=== PATIENT | male | born 1990 | race Caucasian/White ===

== ENCOUNTER 2024-04-08 15:29 | Observation (INO) ==
[2024-04-08 16:05] LABS: Basophils # (auto) 0.05 K/uL (0.00-0.20); Basophils % (auto) 0.8 %; Eosinophils # (auto) 0.29 K/uL (0.00-0.50); Eosinophils % (auto) 4.8 %; Hematocrit (blood only) 40.6 % (42.0-52.0); Hemoglobin 14.2 g/dl (14.0-18.0); Immature Granulocytes # (auto) 0.02 K/uL (0.01-0.20); Immature Granulocytes % (auto) 0.3 %; Lymphocytes # (auto) 1.86 K/uL (1.20-3.40); Lymphocytes % (auto) 30.7 %; Mean Corpuscular Hemoglobin 31.2 pg (25.0-34.0); Mean Corpuscular Volume 89.2 fL (80.0-100.0); Mean Platelet Volume 10.8 fL (9.4-12.4); Monocytes # (auto) 0.32 K/uL (0.11-0.59); Monocytes % (auto) 5.3 %; Neutrophils # (auto) 3.51 K/uL (1.40-6.50); Neutrophils % (auto) 58.1 %; Platelet Count 352 K/uL (130-400); RDW Coefficient of Variation 12.4 % (11.5-14.5); RDW Standard Deviation 40.8 fL (36.4-46.3); Red Blood Count 4.55 M/uL (4.70-6.10); White Blood Count 6.05 K/ul (4.8-10.8)
--- NOTE | 2024-04-08 16:10 | Emergency Department Note ---
History of Present Illness General Chief complaint: Abdominal Pain Stated complaint: RT FLANK PAIN, POSSIBLE APPENDICITIS Time Seen by Provider: 04/08/24 15:48 History of Present Illness This is a 34-year-old male presenting to the emergency department for evaluation of right lower quadrant abdominal pain. Patient has had symptoms for the past 3 days. He went to his primary care physician, and did have an outpatient CT scan performed a few hours ago through the [facility] system, which did show acute appendicitis. Patient does not have nausea or vomiting. He has been able to use the bathroom as normal. No history of abdominal surgery. Last meal was around 2 PM, roughly 2 hours prior to arrival. Home Medications Medication Instructions Recorded Confirmed Type cetirizine 10 mg tablet 10 mg PO DAILY PRN Allergy Symptoms 12/07/18 04/08/24 History omeprazole 20 mg capsule,delayed 20 mg PO DAILY #90 caps 10/11/22 04/08/24 Rx release oxycodone 5 mg tablet 5 - 10 mg (1 - 2 x 5 mg) PO 04/09/24 Rx .[id number] PRN pain #15 tabs Allergies Allergy/AdvReac Type Severity Reaction Status Date / Time No Known Allergies Allergy Unverified 10/11/22 10:01 Past Med/Surg History Problem List (Updated 04/09/24 @ 16:58 by Aiden Rangel PA-C) Encounter for pre-operative examination Appendicitis (Acute) Esophageal foreign body (Acute) Medical History (Updated 04/09/24 @ 16:58 by Aiden Rangel PA-C) Esophageal stricture Surgical History No pertinent past surgical history Family History Other Food impaction of esophagus Social History Smoking Status: Never smoker Second Hand Exposure: No; Do You Dip or Chew Tobacco: No; Hx Alcohol Use: No Hx Substance Use: No Preferred Language: Vietnamese Communication Ability: Effective 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 Beliefs That Will Affect Care: None Current Living Situation: Spouse and Family Current Living Situation Comment: 2 children Other Information That Helps Us Care for You: No Feels Safe at Home: Yes Safety Concerns: Feels Safe At This Time Assistive Devices: None Review of Systems A total of 10 systems reviewed and were otherwise negative Physical Exam Vital Signs Vital Signs - 24 hr 04/08/24 15:32 Temperature 36.5 C Temperature Source Temporal Artery Scan Pulse Rate 85 Respiratory Rate 18 Respiratory Effort / Characteristics Non-Labored Spontaneous Respiratory Depth Normal Blood Pressure 123/77 Blood Pressure Mean 92 Blood Pressure Position Sitting Pulse Oximetry 97 Oxygen Delivery Method Room Air Sepsis Recent Fever Within 48 Hours No Sepsis New/Unexplained Change in Mental Status No Sepsis Action Taken by Nursing No Action Required VITALS: Vitals are noted on the nurse's note and reviewed by myself. Vital signs stable. GENERAL: Well-developed, well-nourished, white male, who is in no acute distress and resting comfortably. Patient is cooperative with the examination. HEAD: Normocephalic atraumatic. HEART: Regular rate and rhythm without murmurs gallops or rubs. LUNGS: Clear to auscultation bilaterally without wheezes, rales or rhonchi. No retractions or accessory muscle use. ABDOMEN: Positive normal bowel sounds x 4. Soft, with right lower quadrant tenderness. No rebound or guarding. Course Administered Medications Morphine Sulfate (Morphine Sulfate 2 Mg/Ml Carp) 2 mg IV Q3H PRN PRN Reason: Pain (1,2,3,4,5) & Pre PT Stop: 04/22/24 18:18 Last Admin: 04/09/24 12:40 Dose: 2 mg Documented By: [facility] Discontinued Medications Bupivacaine HCl/Epinephrine Bitart (Bupivacaine/Epinephrine 0.25% 1:200,000 30 Ml Vial) Confirm Administered Dose 30 ml .ROUTE .STK-MED ONE Stop: 04/09/24 09:21 Last Admin: 04/09/24 11:07 Dose: 30 ml Documented By: [id number] Fentanyl Citrate (Fentanyl Citrate Pf 100 Mcg/2 Ml Vial) 25 mcg IV Q5M PRN PRN Reason: PACU Use Only-Pain Stop: 04/09/24 18:15 Last Admin: 04/09/24 11:45 Dose: 25 mcg Documented By: [facility] Admin: 04/09/24 11:40 Dose: 25 mcg Documented By: [facility] Admin: 04/09/24 11:35 Dose: 25 mcg Documented By: [facility] Admin: 04/09/24 11:30 Dose: 25 mcg Documented By: SHARON Ampicillin Sodium/Sulbactam Sodium (Unasyn) 3,000 mg in 100 mls @ 200 mls/hr IV Q6H GONZALO; Protocol Stop: 04/18/24 18:59 Last Infusion: 04/09/24 07:17 Dose: Infused Documented By: Admin: 04/09/24 06:05 Dose: 200 mls/hr Documented By: Infusion: 04/09/24 02:01 Dose: Infused Documented By: Admin: 04/09/24 01:30 Dose: 200 mls/hr Documented By: Infusion: 04/08/24 20:46 Dose: Infused Documented By: Admin: 04/08/24 20:07 Dose: 200 mls/hr Documented By: MICHAEL Sodium Chloride (Nss) 500 mls @ 125 mls/hr IV .Q4H GONZALO Stop: 04/08/24 22:18 Last Infusion: 04/08/24 23:25 Dose: Infused Documented By: Admin: 04/08/24 18:47 Dose: 125 mls/hr Documented By: RONALDO Lactated Ringer's (Lr) 1,000 mls @ 15 mls/hr IV .Q24H GONZALO Stop: 04/10/24 05:59 Last Infusion: 04/09/24 10:16 Dose: Infused Documented By: Infusion: 04/09/24 10:09 Dose: 0 mls/hr Documented By: Admin: 04/09/24 10:08 Dose: 15 mls/hr Documented By: ENRICO Ketorolac Tromethamine (Ketorolac 30 Mg/Ml Vial) 30 mg IV NOW ONE Stop: 04/09/24 11:48 Last Admin: 04/09/24 11:50 Dose: 30 mg Documented By: SHARON Ketorolac Tromethamine (Ketorolac 30 Mg/Ml Vial) Confirm Administered Dose 30 mg .ROUTE .STK-MED ONE Stop: 04/09/24 11:49 Last Admin: 04/09/24 11:52 Dose: Not Given Documented By: JAMES Medical Decision Making Differential Diagnosis Differential diagnosis: Etiologies such as biliary colic, cholecystitis, hepatitis, pancreatitis, cardiac disease, pancreatitis, gastritis, peptic ulcer disease, appendicitis, cystitis, diverticulitis, mesenteric ischemia, inflammatory bowel disease, ileus, bowel obstruction, testicular/adnexal torsion, aortic pathology, shingles, as well as others were considered Laboratory Data 04/08/24 15:38 04/08/24 15:38 Lab Results 04/08/24 Range/Units 15:38 WBC 6.05 (4.8-10.8) K/ul RBC 4.55 L (4.70-6.10) M/uL Hgb 14.2 (14.0-18.0) g/dl Hct 40.6 L (42.0-52.0) % MCV 89.2 (80.0-100.0) fL MCH 31.2 (25.0-34.0) pg MCHC 35.0 (32.0-36.0) g/dL RDW Std Deviation 40.8 (36.4-46.3) fL RDW Coeff of [place] 12.4 (11.5-14.5) % Plt Count 352 (130-400) K/uL MPV 10.8 (9.4-12.4) fL Immature Gran % (Auto) 0.3 % Neut % (Auto) 58.1 % Lymph % (Auto) 30.7 % [place]ton % (Auto) 5.3 % Eos % (Auto) 4.8 % Baso % (Auto) 0.8 % Neut # (Auto) 3.51 (1.40-6.50) K/uL Lymph # (Auto) 1.86 (1.20-3.40) K/uL Overton # (Auto) 0.32 (0.11-0.59) K/uL Eos # (Auto) 0.29 (0.00-0.50) K/uL Baso # (Auto) 0.05 (0.00-0.20) K/uL Immature Gran # (Auto) 0.02 (0.01-0.20) K/uL Sodium 138 (136-145) mmol/L Potassium 3.6 (3.5-5.1) mmol/L Chloride 104 (98-107) mmol/L Carbon Dioxide 26 (21-32) mmol/L Anion Gap 8 (3-11) BUN 13 (6-23) mg/dl Creatinine 0.90 (0.6-1.4) mg/dl Est Cr Clr Drug Dosing 133.6 ml/min eGFR 114.93 BUN/Creatinine Ratio 14.4 (10-20) Glucose 131 H (70-99(Fasting)) mg/dl Calcium 9.2 (8.6-10.3) mg/dl Total Bilirubin 0.7 (0.2-1.0) mg/dl AST 24 (13-39) U/L ALT 41 (7-52) U/L Alkaline Phosphatase 58 (34-104) U/L Total Protein 7.8 (6.0-8.3) gm/dl Albumin 4.9 (3.4-5.0) gm/dl Globulin 2.9 (2.5-4.0) gm/dl Albumin/Globulin Ratio 1.7 (0.9-2) Lipase 21 (11-82) U/L MDM Narrative Physical exam and history were performed. Nursing notes, EMR, and Medication List were personally reviewed. No social concerns were identified as barriers to patients care. Patient appears to have acute appendicitis on outpatient imaging. IV access was established and labs were obtained. Patient was made NPO. Case was discussed with the on-call surgical team, who evaluated the patient here in the ER. Escalation of care is necessary. Please see the surgical team dictation for further patient course, plan, and disposition. The chart was completed utilizing [facility] Speech Voice Recognition Software. Grammatical errors, random word insertions, pronoun errors, and incomplete sentences are an occasional consequence of this system due to software limitations, ambient noise, and hardware issues. Any formal questions or concerns about the content, text, or information contained within the body of this dictation should be directly addressed to the provider for clarification. Impression & Plan Appendicitis Discharge Plan Visit Data Chief Complaint: Abdominal Pain Stated Complaint: RT FLANK PAIN, POSSIBLE APPENDICITIS ED Provider: Hamzah Engel ED Midlevel Provider: Aiden Rangel Discharge Problem: Appendicitis Patient Disposition: Admitted As Inpatient Discharge Instructions Interventions: ED Discharge Assessment Last Done: 04/08/24 17:46
[2024-04-08 16:17] LABS: Albumin Globulin Ratio 1.7 (0.9-2); Albumin Level 4.9 gm/dl (3.4-5.0); BUN Creatinine Ratio 14.4 (10-20); Bilirubin,Total 0.7 mg/dl (0.2-1.0); Calcium 9.2 mg/dl (8.6-10.3); Creatinine Clr Calc Pharmacy 133.6 ml/min; Globulin 2.9 gm/dl (2.5-4.0); Potassium 3.6 mmol/L (3.5-5.1); Total Protein 7.8 gm/dl (6.0-8.3)
[2024-04-08] MEDS ORDERED: MoRPHine SULFATE 4 MG/ML 1 ML CARP\\VIAL IV PRN (18:19)
[2024-04-08] MEDS ORDERED: ACETAMINOPHEN 325 MG TAB PO PRN (18:19)
[2024-04-08] MEDS ORDERED: oxyCODONE HCL IR 5 MG TAB (IMMEDIATE RELEASE) PO PRN (18:19)
[2024-04-08] MEDS ORDERED: ONDANSETRON INJ 2 MG/ML 2 ML VIAL IV PRN (18:19)
[2024-04-08] MEDS: SODIUM CHLORIDE 0.9% 500 ML IV SCH (18:47)
--- NOTE | 2024-04-08 19:23 | History & Physical Report ---
Date of Service April 08, 2024 Assessment & Plan (1) Appendicitis: Plan: Due to the patient's clinical presentation and findings on his outpatient CT scan he was admitted to the surgical service and we will proceed as follows: Analgesics to be provided Antiemetics we provided Will keep the patient n.p.o. IV fluid provided for hydration Will administer antibiotics in form of Unasyn Patient is tentatively scheduled for an appendectomy with Dr. Иван Mathis on 04/09/2024. At the present time the patient is normotensive without tachycardia or fever and he is nontoxic-appearing. Additional recommendations will be forthcoming based on his operative findings and postoperative recovery thereafter Will use SCDs only for DVT prevention, no chemical means due to planned surgery He will be a level 1 full code Admission and Anticipated Discharge Date Admission Date: April 08, 2024 History of Present Illness Chief Complaint: Appendicitis Primary Care Provider: HOLLAND PCP This is a 34-year-old male who was referred to the emergency department by his outpatient medical team secondary concern for appendicitis. Patient says approximate 3 days ago he developed some abdominal pain. He notes that the pain was generalized throughout his abdomen and is now mostly in the right lower quadrant. He says that initially he had to take off from work because the pain was so severe but over the ensuing several days the pain has subsided somewhat. He has not had any nausea or vomiting. He denies any fevers, shakes, or chills. He does not report any modifying or mitigating factors to his pain. He has never had any surgical procedures to his abdomen in the past. His most recent oral intake was at approximate 2:00 PM today when he ate some chicken tenders. Patient did have an outpatient CT scan at an outpatient [facility] facility which reportedly showed he had concern for acute appendicitis. He was therefore referred to the emergency department. Since arrival to [facility] he has had labs which include CBC were white blood cell count, hemoglobin, and platelet count were normal. His hematocrit was slightly low 40.6. Chemistry profile showed sodium and potassium as well as the BUN and creatinine were normal. There is no elevation of LFTs or lipase. At the time of my interview he was resting comfortably in bed he was no distress. Concerning past medical history the patient is treated for seasonal allergies as well as GERD Concerning surgical history he has never had any abdominal surgeries Concerning social history he does not smoke Concerning family history he does not report any family history of coronary artery disease Allergies Allergy/AdvReac Type Severity Reaction Status Date / Time No Known Allergies Allergy Unverified 10/11/22 10:01 Home Medications Medication Instructions Recorded Confirmed Type cetirizine 10 mg tablet 10 mg PO DAILY PRN Allergy Symptoms 12/07/18 04/08/24 History omeprazole 20 mg capsule,delayed 20 mg PO DAILY #90 caps 10/11/22 04/08/24 Rx release Past Med/Surg History Problem List (Updated 04/08/24 @ 19:21 by Aric Huerta PA-C) Appendicitis Esophageal foreign body (Acute) Medical History (Updated 04/08/24 @ 19:21 by Aric Huerta PA-C) Esophageal stricture Surgical History No pertinent past surgical history Family History Other Food impaction of esophagus Social History Smoking Status: Never smoker Preferred Language: American Feels Safe at Home: Yes Review of Systems Review of Systems: All systems reviewed & are unremarkable except as noted in HPI & below Physical Exam Constitutional: WD/WN, vitals as above Eyes: no conjunctival abnormality ENMT: Ears: no hearing impairment and no external ear abnormality Mouth: no oropharynx abnormality Neck: trachea midline Respiratory: normal respiratory effort; no respiratory distress and no labored breathing Cardiovascular: Rate/Rhythm: regular rate and regular rhythm Gastrointestinal (Abdomen): Abdomen is soft and nondistended. There is no rebound tenderness or guarding the patient did have pain with palpation in the right lower quadrant McBurney's point Musculoskeletal: No calf tenderness Skin: no rashes Neurologic: moves all extremities Psychiatric: A+Ox3, euthymic affect Results & Data Results & Data Vital Signs (Past 12 Hours) Vital Signs Temp Pulse Pulse Resp BP BP Pulse Ox 04/08/24 17:46 65 18 106/53 L 96 04/08/24 16:30 76 18 134/76 99 04/08/24 16:13 79 04/08/24 15:32 36.5 C 85 18 123/77 97 O2 Del Method 04/08/24 17:46 Room Air 04/08/24 16:30 Room Air 04/08/24 16:13 04/08/24 15:32 Room Air Code Status & VTE Plan VTE Prophylaxis Plan VTE Prophylaxis will be ordered: Yes PG Care Time/CCT Total # of Minutes Spent Total Time Spent with Patient: Total time spent is greater than 50% in coordination of care (as documented) at patient's floor/unit and/or counseling patient: Coding Level of Care Code 97385 INT INP/OBS CARE 3/75MIN Diagnoses Appendicitis K37
[2024-04-08] MEDS: AMPICILLIN/SULBACTAM SOD 3,000 MG/100 ML BAG IV SCH (20:07)
--- OUTSIDE RECORDS SUMMARY | 2024-04-09 00:29 | External Medical Summary | Summary of Care ---
Author Name Unknown Organization [facility] Address [address] [place] [address] Phone [phone] Care Team Providers Care Oil Transport Driver Name Role Phone Unavailable Primary Care Provider Unavailabl e Reason for Referral * Precert (Within 24 hrs (call dept; emergent)) - Authorized Specialty Diagnoses / Procedures Referred By [place] t Referred To Contact Radiology Diagnoses RLQ abdominal pain Procedures CT ABD/PELVIS W WO IV CONTRAST AND W ORAL CONT Gerri Kenney CRNP [address] [place] [address] [place] [address] Phone: tel: fax: Referral ID Status Reason Start Date Expiration Date V isits Requested Visits Authorized [id number] Authorized 04/05/2024 999 999 Reason for Visit * Reason Comments Acute Encounter Details Date Type Department Care Team (Late st Contact Info) Description 04/05/2024 2:40 PM EST Office Visit Family Medicine [address] [place] [id number] Gerri Kenney CRNP [address] [place] [address] [place] [id number] RLQ abdominal pain* Allergies No known active allergiesdocumented as of this encounter (statuses as of 04/05/2024) Medications ZYRTEC ALLERGY 10 MG PO CAPSIndications :in the evening Take by mouth. Indications: in the evening Active Mens Multi Vitamin & Mineral Oral Tablet Take by mouth. Active Omeprazole 20 MG Oral Capsule Delayed Release (PriLOSEC) Take 1 Capsule by mouth in the morning and 1 Capsule in the evening. 180 Capsule 3 09/22/2023 Active documented as of this encounter (statuses as of 04/05/2024) Active Problems No known active problems documented as of this encounter (statuses as of 04/05/2024) Resolved Problems Problem Noted Date Diagnosed Date Resolved Date Blepharitis of both eyes 10/26/201204/2022 documented as of this encounter (statuses as of 04/05/2024) Immunizations Name Administration Dates Next Due TDAP (age 10 and older)(Boostrix) 09/20/2019 documented as of this encounter Social History Tobacco Use Types Packs/Day Years Used Date Smoking Tobacco: Never Smokeless Tobacco: Never Alcohol Use Standard Drinks/Week Comments No 0 (1 standard drink = 0.6 oz pur e alcohol) PHQ-2 Answer Date Recorded PHQ-2 Score 0 09/20/2019 Hunger Vital Sign Answer Date Recorded Worried About Running Out of Food in the Last Ye ar Never true 09/20/2019 Ran Out of Food in the Last Year Never true 09/20/2019 Utilities Answer Date Recorded Do you have trouble paying y our heating, water, or electric bill? (Adult - for ages 18 years and over) Not on file 10/03/2023 Is your family able to pay t he heat, water, or electric bill? (Household - for ages 0-17 years) Not on file 10/03/2023 Does your family have access to good internet? (Household - for ages 0-17 years) Not on file 10/03/2023 Social Connections Answer Date Recorded How often do you feel lonely or isolated from those around you? (Adult - for ages 18 years and over) Not on file 10/03/2023 Sex and Gender Information Value Date Recorded Sex Assigned at Not on file Legal Sex Male 7:12 AM EST Gender Identity Not on file Sexual Orientation Not on file Occupation Industry Job Start Date Job End Date [employer] Not on file Not on file Not on file documented as of this encounter Last Filed Vital Signs Vital Sign Reading Time Taken Comments Blood Pressure 112/68 04/05/2024 2:38 PM EST Pulse 95 04/05/2024 2:38 PM EST Temperature 36.3 C (97.4 F) 04/05/2024 2:38 PM ES T Respiratory Rate 16 04/05/2024 2:38 PM EST Oxygen Saturation 96% 04/05/2024 2:38 PM EST Inhaled Oxygen Concentration - - Weight 97.1 kg (214 lb) 04/05/2024 2:38 PM EST Height - - Body Mass Index 33.83 11/10/2022 10:24 AM EDT documented in this encounter Nursing Notes * Gloria Castillo LPN - 04/05/2024 2:35 PM EST C/o right abdominal pain since about 3 am. documented in this encounter Plan of Treatment Upcoming Encounters Date Type Department Care Team (Late st Contact Info) Description 04/08/2024 11:30 AM EST Imaging Radiology [address] [address] Scheduled Orders Name Type Priority Associated Diagnoses Orde r Schedule CT ABD/PELVIS W WO IV CONTRAST AND W ORAL CONT Medical Imaging STAT RLQ abdominal pain Expected: 04/05/2024, Expires: 05/06/2025 BASIC METABOLIC PANEL Lab STAT RLQ abdominal pain Expected: 04/05/2024 (Approximate), Expires: 04/05/2025 Health Maintenance Due Date Last Done Comments HIV Screening 2005 Hepatitis C Screening 01/20/2008 Hepatitis B Vaccine (1 of 3 - 19+ 3-dose series) 2009 Depression Screening 09/19/2020 09/20/2019 COVID-19 Vaccine (1 - 2023-2 5 season) 2023 Influenza Vaccine (FLU shot) (#1) 2023 DTap/Tdap Vaccines (2 - Td o r Tdap) 09/19/2029 09/20/2019 HPV (Gardasil) Vaccine Aged Out No lo nger eligible based on patient's age to complete this topic MENINGOCOCCAL (MENACTRA/MENVEO) Aged Out No longer eligible based on patient's age to complete this topic Pneumococcal Vaccine: Pediat rics (0 to 5 Years) and At-Risk Patients (6 to 64 Years) Aged Out No longer eligi ble based on patient's age to complete this topic documented as of this encounter Medical Devices Not on filedocumented as of this encounter Procedures Procedure Name Priority Date/Time Associated Diagnosis Comments URINALYSIS, POINT OF CARE KELLY 04/05/2024 2:46 PM EST documented in this encounter Results * URINALYSIS, POINT OF CARE (04/05/2024 2:46 PM EST) Color, Urine Yellow Light Yellow, Yellow 04/05/2024 2:48 PM EST [facility] Clarity, Urine Clear Clear 04/05/2024 2:48 PM EST [facility] Glucose, Urine Negative Negative mg/dL 04/05/2024 2:48 PM EST [facility] Bilirubin, Urine Negative Negative 04/05/2024 2:48 PM EST [facility] Ketone, Urine Negative Negative mg/dL 04/05/2024 2:48 PM EST [facility] Specific [place], Urine 1.020 1.003 - 1.030 04/05/2024 2:48 PM EST [facility] Blood, Urine Negative Negative 04/05/2024 2:48 PM EST [facility] pH, Urine 5.5 5.0, 5.5, 6.0, 6.5, 7.0, 7.5 units 04/05/2024 2:48 PM EST [facility]00 Protein, Urine Negative Negative mg/dL 04/05/2024 2:48 PM EST [facility] Urobilinogen, Urine 0.2 0.2, 1.0 mg/dL 04/05/2024 2:48 PM EST [facility] Nitrite, Urine Negative Negative 04/05/2024 2:48 PM EST [facility] Esterase, Urine Negative Negative 04/05/2024 2:48 PM EST [facility] Urine 04/05/2024 2:46 PM EST 04/05/2024 2:48 PM EST us Gerri [facility] LAB POINT OF CA RE TEST DOCKED DEVICE UNSOLICITED RESULTS Final Result [facility] [address] [place] [address] documented in this encounter Visit Diagnoses Diagnosis RLQ abdominal pain- Primary Abdominal pain, right lower quadrant documented in this encounter Advance Directives * Full Code (Latest Code Status on File) Date Activated Date Inactivated Comments 09/01/2017 12:37 PM 09/01/2017 6:36 PM This order reflects the patients wishes and were consensually agreed upon.
--- OUTSIDE RECORDS SUMMARY | 2024-04-09 00:29 | External Medical Summary ---
Author Name Unknown Address Unknown Organization : Laboratory Report Ordering Provider Test Date Status NADIA COMER 04/05/2024 14:46:00 Final Observation Date Value Abnormality Reference (Units ) Status Color of Urine by Auto 04/05/2024 14:46:00 Yellow Light Yellow, Yellow Final Clarity, Urine 04/05/2024 14:46:00 Clear Clear Final Glucose [Mass/volume] in Urine by Automated test strip 04/05/2024 14:46:00 Negative Negative (mg/dL) Final Bilirubin.total [Presence] in Urine by Automated test strip 04/05/2024 14:46:00 Negative Negative Final Ketones [Mass/volume] in Urine by Automated test strip 04/05/2024 14:46:00 Negative Negative (mg/dL) Final Specific gravity, Urine 04/05/2024 14:46:00 1.020 1.003-1.030 Final Hemoglobin [Presence] in Urine by Automated test strip 04/05/2024 14:46:00 Negative Negative Final pH, Urine 04/05/2024 14:46:00 5.5 5.0, 5.5, 6.0, 6.5, 7.0, 7.5 (units) Final Protein [Mass/volume] in Urine by Automated test strip 04/05/2024 14:46:00 Negative Negative (mg/dL) Final Urobilinogen, Urine 04/05/2024 14:46:00 0.2 0.2, 1.0 (mg/dL) Final Nitrite [Presence] in Urine by Automated test strip 04/05/2024 14:46:00 Negative Negative Final Leukocyte esterase [Presence] in Urine by Automated test strip 04/05/2024 14:46:00 Negative Negative Final Performing Location
--- OUTSIDE RECORDS SUMMARY | 2024-04-09 06:18 | External Medical Summary | Summary of Care ---
Author Name Unknown Organization [facility] Address [address] [place] [address] Phone [phone] Care Team Providers Care Director Of Spa And Guest Experience Name Role Phone Unavailable Primary Care Provider Unavailabl e Reason for Visit * Reason Onset Date Comments Test Results 04/08/2024 Encounter Details Date Type Department Care Team (Late st Contact Info) Description 04/08/2024 Telephone Family Medicine [address] [phone] Gerri Kenney [address] [address] Test Results Allergies No known active allergiesdocumented as of this encounter (statuses as of 04/08/2024) Medications ZYRTEC ALLERGY 10 MG PO CAPSIndications :in the evening Take by mouth. Indications: in the evening Active Mens Multi Vitamin & Mineral Oral Tablet Take by mouth. Active Omeprazole 20 MG Oral Capsule Delayed Release (PriLOSEC) Take 1 Capsule by mouth in the morning and 1 Capsule in the evening. 180 Capsule 3 09/22/2023 Active Hospital, Clinic, or Other Facility Administered Medication Ordered Dose Route Frequency Start Date End Date Status sodium chloride 0.9 % flush/inj 10 mL 10 mL IV PUSH ONCE 04/08/2024 04/09/2024 Active documented as of this encounter (statuses as of 04/08/2024) Active Problems No known active problems documented as of this encounter (statuses as of 04/08/2024) Resolved Problems Problem Noted Date Diagnosed Date Resolved Date Blepharitis of both eyes 10/26/201204/2022 documented as of this encounter (statuses as of 04/08/2024) Immunizations Name Administration Dates Next Due TDAP [...] in the Last Year Never true 09/20/2019 Sex and Gender Information Value Date Recorded Sex Assigned at Not on file Legal Sex Male 7:12 AM EST Gender Identity Not on file Sexual Orientation Not on file 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 * Telephone Encounter - Gerri Kenney CRNP - 04/08/2024 3:00 PM EST Spoke with patient about CT results and advised going to the ER for early acute appendicitis. Plans to go to [facility] ER. documented in this encounter Plan of Treatment Health Maintenance Due Date Last Done Comments [...] Not on filedocumented as of this encounter Advance Directives * Full Code (Latest Code Status on File) Date Activated Date Inactivated Comments 09/01/2017 12:37 PM 09/01/2017 6:36 PM This order reflects the patients wishes and were consensually agreed upon.
[2024-04-09] MEDS ORDERED: PROPOFOL IV EMULSION 10 MG/ML 20 ML VIAL IV ONE ×2 (07:30→08:42)
[2024-04-09] MEDS ORDERED: ONDANSETRON INJ 2 MG/ML 2 ML VIAL ONE ×2 (07:30→08:42)
[2024-04-09] MEDS ORDERED: fentaNYL citrate PF 100 MCG/2 ML VIAL ONE ×3 (07:30→10:31)
[2024-04-09] MEDS ORDERED: DEXAMETHASONE SOD INJ 4 MG/ML VIAL ONE ×2 (07:30→08:42)
[2024-04-09] MEDS ORDERED: MIDAZOLAM HCL 1 MG/ML 2ML VIAL ONE ×2 (07:30→10:18)
[2024-04-09] MEDS ORDERED: ROCURONIUM BROMIDE 10 MG/ML 5 ML VIAL IV ONE ×2 (07:30→08:43)
[2024-04-09] MEDS ORDERED: SUGAMMADEX SODIUM 200 MG/2 ML VIAL IV ONE ×2 (07:31→08:43)
--- NOTE | 2024-04-09 08:43 | Anesthesiology Consultation ---
Date of Service April 09, 2024 Assessment & Plan (1) Encounter for pre-operative examination: Chart Review Chart Review: Acceptable Risk for Surgery and Patient NOT seen in Pre Admission Testing Consults Requested none History Surgery Operation Date: 04/09/24 07:00 Proposed Procedures p Laparoscopic Appendectomy, Possible Open - Иван Kimberly Mathis DO Height/Weight Height: 5 ft 9 in Weight: 96 kg Allergies Allergy/AdvReac Type Severity Reaction Status Date / Time No Known Allergies Allergy Unverified 10/11/22 10:01 Medications Home Medications Medication Instructions Recorded Confirmed Last Taken cetirizine 10 mg tablet 10 mg PO DAILY PRN Allergy Symptoms 12/07/18 04/08/24 10/09/22 omeprazole 20 mg capsule,delayed 20 mg PO DAILY #90 caps 10/11/22 04/08/24 Unknown release oxycodone 5 mg tablet 5 - 10 mg (1 - 2 x 5 mg) PO 04/09/24 Unknown .[id number] PRN pain #15 tabs Active Medications Generic Name Dose Route Start Last Admin Trade Name Alfredq PRN Reason Stop Dose Admin Ampicillin Sodium/Sulbactam Sodium 3,000 mg in 100 mls @ 200 mls/hr 04/08/24 19:00 04/09/24 07:17 Unasyn IV 04/18/24 18:59 Infused Q6H GONZALO Infusion Protocol NPO Date Last Intake of Fluids: 04/08/24 Time Last Intake of Fluids: 23:00 Date Last Intake of Solids: 04/08/24 Time Last Intake of Solids: 23:00 Past Medical History Medical History (Updated 04/09/24 @ 08:42 by Boom Erazo DO) Esophageal stricture Past Family History Family History Other Food impaction of esophagus Past Surgical History Surgical History No pertinent past surgical history Social History Smoking Status: Never smoker Do You Dip or Chew Tobacco: No Hx Alcohol Use: No Hx Substance Use: No substance use type: does not use Physical Exam Vital Signs Last Vital Signs Temp 97.7 F 04/09/24 08:32 Pulse 65 04/09/24 08:32 Resp 20 04/09/24 08:32 BP 127/73 04/09/24 08:32 Pulse Ox 96 04/09/24 08:32 O2 Del Method Room Air 04/09/24 08:32 Testing Laboratory Results 04/08/24 15:38 04/08/24 15:38 Electrocardiogram Date: 02/20/23 Findings: + NSR @
--- NOTE | 2024-04-09 09:08 | Surgery Progress Note ---
Date of Service April 09, 2024 Assessment & Plan (1) Appendicitis: Plan: His CT images and results were personally viewed and interpreted by myself He does have a slightly dilated appendix with some periappendiceal inflammation consistent with appendicitis Will plan on a laparoscopic appendectomy, possible open Consent was obtained, risks discussed including bleeding, infection, leak, abscess Admission and Anticipated Discharge Date Admission Date: April 08, 2024 Subjective Patient seen and examined. Still with some right lower quadrant abdominal pain. Afebrile. Review of Systems Constitutional: no fever and no chills Eyes: no blind spots and no worsening vision Respiratory: no cough and no dyspnea Cardiovascular: no chest pain and no dyspnea on exertion Gastrointestinal: + abdominal pain; no nausea and no vomit ing Genitourinary: no dysuria, no difficulty urinating or no urinary hesitancy Neurologic: no headache(s) and no confusion Psychiatric: no behavioral changes and no depression Physical Exam Constitutional: WD/WN, vitals as above Respiratory: normal respiratory effort, lungs clear to auscultation Cardiovascular: RRR, no murmur, no edema Gastrointestinal (Abdomen): normal bowel sounds, soft, nontender, no hepatosplenomegaly Musculoskeletal: no cyanosis or clubbing, extremities motor strength 5/5 Skin: no rashes, warm and dry Psychiatric: A+Ox3, euthymic affect Results & Data Vital Signs (Past 12 Hours) Vital Signs Temp Pulse Pulse Resp BP Pulse Ox O2 Del Method 04/09/24 08:32 36.5 C 65 127 H 20 127/73 96 Room Air PG Care Time/CCT Total # of Minutes Spent Total Time Spent with Patient: Total time spent is greater than 50% in coordination of care (as documented) at patient's floor/unit and/or counseling patient: Coding Level of Care Code 71622 SUB INP/OBS CARE 05/11MIN Diagnoses Appendicitis K37
[2024-04-09] MEDS ORDERED: Nursing to Pharmacy Communication SCH (09:15)
[2024-04-09] MEDS: LACTATED RINGER'S 1,000 ML IV SCH (10:08)
[2024-04-09] MEDS ORDERED: ePHEDrine sulfate 50 MG/ML AMP IV PRN ×2 (10:15→11:48)
[2024-04-09] MEDS ORDERED: ONDANSETRON INJ 2 MG/ML 2 ML VIAL IV PRN (10:15)
[2024-04-09] MEDS ORDERED: ATROPINE SULFATE 0.1 MG/ML 10ML SYR IV PRN ×2 (10:15→11:48)
[2024-04-09] MEDS: BUPIVACAINE/EPINEPHRINE 0.25% 1:200,000 30 ML VIAL ONE (11:07)
--- NOTE | 2024-04-09 11:17 | Post Operative Brief Note ---
PG Immediate Post Op with CF Date of Surgery April 09, 2024 Pre & Post Diagnosis Operation Date: 04/09/24 07:00 Pre-Op Diagnosis: ACUTE APPENDICITIS Post-Op Diagnosis: ACUTE APPENDICITIS without perforation I identified the patient and participated in the time-out.: Yes Procedure Operation Date: 04/09/24 07:00 Actual Procedures p Laparoscopic Appendectomy(Not Applicable) - Иван Mathis DO Surgeon Иван Mathis DO Clinical Lab Clerk Dawood BURNETT Estimated Blood Loss 10 Findings See Below Acutely inflamed dilated appendix without perforation Specimens Specimen Description: a) Appendix. Anesthesia Type General Complications none Disposition Disposition: Recovery Room
--- NOTE | 2024-04-09 11:18 | Operative Report ---
PG Post Operative Report Pre & Post Diagnosis Operation Date: 04/09/24 07:00 Pre-Op Diagnosis: ACUTE APPENDICITIS Post-Op Diagnosis: ACUTE APPENDICITIS without perforation I identified the patient and participated in the time-out.: Yes Procedure Operation Date: 04/09/24 07:00 Actual Procedures p Laparoscopic Appendectomy(Not Applicable) - Иван Mathis DO Surgeon Иван Mathis DO Enrollment Representative Dawood BURNETT Estimated Blood Loss 10 Findings See Below Acutely inflamed dilated appendix without perforation Specimens Appendix to pathology Drains None Anesthesia Type General Complications none Disposition Disposition: Recovery Room Indications 34-year-old male with acute appendicitis Description of Procedure The patient was brought to the OR and placed in the supine position and SCD's placed. At this time he underwent general endotracheal anesthesia without incident. At this time a Hopper catheter was placed under sterile conditions. His abdomen was prepped and draped in the usual sterile fashion. He was given appropriate pre-operative antibiotics. A timeout was called, the procedure was verified as Laparoscopic appendectomy, possible open. Surgical, anesthesia and nursing teams agreed and the procedure was begun. After injection of 0.25% Marcaine with epinephrine, a supraumbilical incision was made using a #11 blade scalpel and carried down to the fascia with a hemostat. The abdomen was then elevated with towel clamps and entered using the Veress needle confirming position using the saline drop test. Pneumoperitoneum was established and 5mm trocar was placed. Laparoscope was introduced. No injury was seen from our entrance to the abdomen. At this time a 5mm suprapubic port and 12mm LLQ port were placed under direct visualization. The patient was placed in Trendelenburg and rotated to the left. At this time the appendix was visualized and the tip was freed and elevated toward the abdominal wall. The appendix appeared inflamed, dilated and edematous. A window was created in the mesoappendix at the base of the appendix. A 45mm ramos load stapler was then fired across the base of the appendix which appeared healthy. The mesoappendix was then taken using Harmonic device. The appendix was then placed in an Endocatch bag and removed through the LLQ port site. Staple line was inspected and was intact. 5 mL of Floseal hemostatic agent was placed at the staple line. Hemostasis was complete. The 12 mm port was then closed at the fascial level using a 0 Vicryl suture using the suture passer. All ports were removed under direct visualization and no bleeding was noted. The abdomen was desufflated and the skin was closed using 4-0 Monocryl in a subcuticular fashion. Sterile dressings were applied. Hopper catheter was removed. The patient was then awakened from anesthesia having remained stable throughout the entire case and transported to PACU. All needle and sponge counts were correct x 2. The nurse practitioner was present and scrubbed for the entire case. She was essential in positioning, prepping and draping the patient, retraction and exposure, driving the laparoscope, closure of the incisions and placement of the dressings. I attest to the content of the Intraoperative Record and any orders documented therein. Any exceptions are noted below.
[2024-04-09] MEDS: fentaNYL citrate PF 100 MCG/2 ML VIAL IV PRN (11:30)
[2024-04-09] MEDS ORDERED: fentaNYL citrate PF 100 MCG/2 ML VIAL IV PRN (11:48)
[2024-04-09] MEDS: KETOROLAC 30 MG/ML VIAL IV ONE (11:50)
[2024-04-09] MEDS: KETOROLAC 30 MG/ML VIAL ONE (11:52)
--- NOTE | 2024-04-09 12:28 | Discharge Summary ---
Date of Service April 09, 2024 Admission HPI Per Admitting Provider This is a 34-year-old male who was referred to the emergency department by his outpatient medical team secondary concern for appendicitis. Patient says approximate 3 days ago he developed some abdominal pain. He notes that the pain was generalized throughout his abdomen and is now mostly in the right lower quadrant. He says that initially he had to take off from work because the pain was so severe but over the ensuing several days the pain has subsided somewhat. He has not had any nausea or vomiting. He denies any fevers, shakes, or chills. He does not report any modifying or mitigating factors to his pain. He has never had any surgical procedures to his abdomen in the past. His most recent oral intake was at approximate 2:00 PM today when he ate some chicken tenders. Patient did have an outpatient CT scan at an outpatient [facility] facility which reportedly showed he had concern for acute appendicitis. He was therefore referred to the emergency department. Since arrival to [facility] he has had labs which include CBC were white blood cell count, hemoglobin, and platelet count were normal. His hematocrit was slightly low 40.6. Chemistry profile showed sodium and potassium as well as the BUN and creatinine were normal. There is no elevation of LFTs or lipase. At the time of my interview he was resting comfortably in bed he was no distress. Concerning past medical history the patient is treated for seasonal allergies as well as GERD Concerning surgical history he has never had any abdominal surgeries Concerning social history he does not smoke Concerning family history he does not report any family history of coronary artery disease Principal Diagnosis acute appendicitis Discharge Exam Constitutional no acute distress Respiratory normal respiratory effort; no respiratory distress Cardiovascular Rate/Rhythm: regular rate Gastrointestinal (Abdomen) Inspection/Auscultation: + abdominal surgical incision Neurologic moves all extremities Psychiatric Orientation: alert and oriented x 3 Discharge Data Allergies Allergy/AdvReac Type Severity Reaction Status Date / Time No Known Allergies Allergy Unverified 10/11/22 10:01 Consultations 04/08/24 16:10 Consult General Surgery Stat Procedures Performed Operation Date: 04/09/24 07:00 Actual Procedures p Laparoscopic Appendectomy(Not Applicable) - Иван Mathis, DO Hospital Course (1) Appendicitis: This is a 34 yo male who presented to the [facility] ED on 04/08/24 with abdominal pain. He had an outpatient CT scan at [facility] and it was concerning for acute appendicitis (see HPI for full details). Patient made NPO with IVF and booked for the OR. On 04/09/24 the patient went to the OR with Dr Mathis for a laparoscopic appendectomy. The patient tolerated the procedure well, see operative report for full details. Post operatively the patient's diet was advanced, pain managed on prn meds, and incisions clean/dry/intact. The patient was deemed stable for discharge to home post procedure. The patient was given discharge instructions, follow up recommendations, return precautions and a prescription for narcotic pain medication. Total Time Total Time Spent Total Time Spent (In Minutes): 10 Discharge Plan Discharge Items Patient Disposition: Home - Self-Care Reason For Visit: ACUTE APPENDICITIS Discharge Diagnosis: laparoscopic appendectomy Activity: Per Instructions section Lifting: No more than 10 pounds Bathing Comment: you can shower 04/10. No soaking in pool/bath for 2 weeks Exercise/Sports: Wait until after follow-up appointment Driving/Machine Use: no driving if taking narcotic pain medication Non-emergency contact: Surgeon Call non-emergency contact if: you have any medication questions, your symptoms worsen, your temperature is above 101.5, your wound has increased redness, your wound has increased drainage and your wound pain has increased Follow-up/Referrals: Иван Mathis, [Physician] - (call office for follow up in 2 weeks ) PCP,NO [Primary Care Provider] - Diet: Regular Addtl Attending Provider Instructions: You have surgical glue called dermabond on your surgical site incisions. You may shower with this on. This will tend to come off within a couple of weeks. Do not pick at it. Pending Studies at Discharge: Yes Studies:: surgical pathology Stand-Alone Forms: My [facility] [employer] Sports, Smoking Cessation Medications and DC Order Prescriptions: New oxycodone 5 mg tablet 5 - 10 mg PO .[id number] MDD no more than 6 tabs in 24hours PRN (Reason: pain) Qty: 15 0RF Continued cetirizine 10 mg Tablet 10 mg PO DAILY PRN (Reason: Allergy Symptoms) omeprazole 20 mg capsule,delayed release(DR/EC) 20 mg PO DAILY Qty: 90 1RF Discharge Orders: Discharge Order (Routine); Ordered 04/09/24 Ordered By: Dawood Cruz/Other Patient Handouts: Pain After Surg, Surgery for Appendicitis Admission Data Admit Date/Time: 04/08/24 16:30 Attending Provider: Иван Mathis Admit Provider: Иван Mathis Primary Care Provider: PCP,NO Other Providers: Иван Mathis Other Interventions: Discharge Summary Assessment (RN) Last Done: 04/09/24 12:45 Coding Level of Care Code 98137 IN/OBS DISCH 30 MIN/LESS Diagnoses Appendicitis K37
[2024-04-09] MEDS: MoRPHine SULFATE 2 MG/ML CARP IV PRN (12:40)
--- NOTE | 2024-04-09 13:41 | Anesthesiology Progress Note ---
Date of Service April 09, 2024 Anesthesia Post Procedure Vital Signs Vital Signs: Temp Pulse Pulse Pulse Pulse Resp BP 04/09/24 12:30 36.6 C 69 14 04/09/24 12:10 36.7 C 04/09/24 12:05 66 14 04/09/24 11:55 65 16 04/09/24 11:45 64 12 04/09/24 11:35 83 20 04/09/24 11:27 36 C L 91 H 14 04/09/24 08:32 36.5 C 65 127 H 20 04/08/24 20:10 36.7 C 67 16 04/08/24 18:00 36.6 C 63 16 04/08/24 17:46 65 18 106/53 L 04/08/24 16:30 76 18 04/08/24 16:13 79 04/08/24 15:32 36.5 C 85 18 123/77 BP BP Pulse Ox O2 Del Method O2 Flow Rate 04/09/24 12:30 130/76 96 Nasal Cannula 2 04/09/24 12:10 04/09/24 12:05 120/66 98 Nasal Cannula 2 04/09/24 11:55 129/83 93 Nasal Cannula 2 04/09/24 11:45 131/67 97 Room Air 04/09/24 11:35 123/76 96 Oxymask 3 04/09/24 11:27 167/94 H 98 Oxymask 6 04/09/24 08:32 127/73 96 Room Air 04/08/24 20:10 126/69 96 Room Air 04/08/24 18:00 123/78 97 Room Air 04/08/24 17:46 96 Room Air 04/08/24 16:30 134/76 99 Room Air 04/08/24 16:13 04/08/24 15:32 97 Room Air Pain Intensity Abdomen: Pain Intensity: 6 Transfer of Care Handoff Completed per policy Notes Mental Status: alert / awake / arousable and participated in evaluation Patient Amnestic to Procedure: Yes Nausea / Vomiting: adequately controlled Pain: adequately controlled Airway Patency, RR, SpO2: stable & adequate BP & HR: stable & adequate Hydration State: stable & adequate Anesthetic Complications: no major complications apparent and Pt Satisfied with anesthetic care
[2024-04-09 13:55] VITALS: RESP 16
[2024-04-09 14:30] VITALS: O2SAT 95
[2024-04-09 15:37] VITALS: BP 124/78; PULSE 79; TEMP 97.7
--- OUTSIDE RECORDS SUMMARY | 2024-04-09 16:49 | External Medical Summary | Summary of Care ---
Author Name Unknown Organization [facility] Address [address] [place] [address] Phone [phone] Care Team Providers Care Lining Cementer Name Role Phone Unavailable Primary Care Provider Unavailabl e Encounter Details Date Type Department Care Team (Late st Contact Info) Description 04/09/2024 Orders Only PATIENT PORTAL DO NOT DELETE THIS DEPT USED BY FALLON VENEGAS [id number] Allergies No known active allergiesdocumented as of this encounter (statuses as of 04/09/2024) Medications ZYRTEC ALLERGY 10 MG PO CAPSIndications [...] as of this encounter (statuses as of 04/09/2024) Active Problems No known active problems documented as of this encounter (statuses as of 04/09/2024) Resolved Problems Problem Noted Date Diagnosed Date Resolved Date Blepharitis of both eyes 10/26/201204/2022 documented as of this encounter (statuses as of 04/09/2024) Immunizations Name Administration Dates Next Due TDAP [...] 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
[2024-04-09] MEDS: oxyCODONE HCL IR 5 MG TAB (IMMEDIATE RELEASE) PO PRN (17:02)
== END 2024-04-09 17:36 | disposition home or self-care (01) ==
LOC: ED 15:29 → 3N 15:29
DX: K35.80 Unspecified acute appendicitis